=== PATIENT | female | born 1990 | race Caucasian/White ===

== ENCOUNTER 2017-09-20 07:15 | Emergency (ER) | payer MEDICAID ==
--- NOTE | 2017-09-20 08:08 | PD ---
HPI Chief Complaint Contractions Date Seen: Sep 20, 2017 Time Seen: 08:04 Travel History International Travel<30 Days: No Contact w/Intl Traveler<30Days: No Known Affected Area: No History of Present Illness HPI 26-year-old who is at 34 weeks 1 day comes in to the hospital complaining of contractions. Patient is here with her mother and they're both driving from [place] and her here in [place] temporarily just visiting. Patient experienced contractions off and on for proximally 4 hours but states that they have decreased now and are almost absent. She states that she had care in [place] with the visit approximately one week ago when ultrasound showed a baby he was 3 pounds. Patient states she has uncomplicated antepartum course and has had 2 prior spontaneous vaginal deliveries 1 at 36 the other one at 37 weeks. Patient is a smoker but she denies drug use vaginal bleeding vaginal discharge rupture membranes. Patient's had normal movement Weeks Gestation: 34 Para: 2 : 3 History Past Medical History Medical History: Denies Significant Hx Obstetric History Obstetric History 36 weeks, 6 lbs. 5 oz., spontaneous vaginal delivery 37 weeks 7 lbs. 2 oz., spontaneous vaginal delivery Past Surgical History Surgical History: No Previous Surgery Family History Family History: Negative Social History Alcohol Use: No Tobacco Use: Yes Substance Abuse: No Allergies-Medications (Allergen,Severity, Reaction): Coded Allergies: No Known Allergies (Unverified , 09/20/17) Review of Systems Except as stated in HPI: all other systems reviewed are Neg Physical Exam Narrative GENERAL: Well-nourished, well-developed patient. Somewhat agitated and when I had entered the room had removed all monitors as the noise offended her. SKIN: Warm and dry. HEAD: Normocephalic and atraumatic. EYES: No scleral icterus. No injection or drainage. ENT: No nasal drainage noted. Mucous membranes pink. Airway patent. NECK: Supple, trachea midline. No JVD. CARDIOVASCULAR: Regular rate and rhythm without murmurs, gallops, or rubs. RESPIRATORY: Breath sounds equal bilaterally. No accessory muscle use. ABDOMEN/GI: Abdomen soft, non-tender, bowel sounds present, no rebound, no guarding Gravid to [-28] weeks size Fundal Height: [-] GENITOURINARY: External Genitalia: intact and normal in appearance BUS glands: [-Normal] Cervix: [-Posterior] Dilatation: [-cl] Effacement: [-50] Station: [--3] Presentation: [Vertex-] Membranes: [intact] Uterine Contractions: [Absent-] FHT's: Category: [-1] Baseline: [140-] Reactive: [-Moderate] Variability: [-Moderate] Decels: [-Absent] EXTREMITIES: No cyanosis or edema. BACK: Nontender without obvious deformity. No CVA tenderness. NEUROLOGICAL: Awake and alert. Motor and sensory grossly within normal limits. Five out of 5 muscle strength in all muscle groups. Normal speech. Data Data Vital Signs Reviewed: Yes [facility] Medical Record Reviewed: Yes Plan 26-year-old originally from [place] and has no records at this time. She is not planning on delivering here and she is here [facility] only temporarily. Examination reveals size less than dates based on fundal height and ultrasound was ordered. Patient is somewhat agitated so urinalysis was ordered with a tox screen. Patient care was transferred to Dr Hinton. She is presently in OB diagnostics for ultrasound Diagnosis Diagnosis: Primary Impression: 34 weeks gestation of Condition: Good Patient Instructions: General Instructions Departure Forms: Tests/Procedures Sharlene Leblanc MD Sep 20, 2017 08:08
[2017-09-20 08:48] LABS: BLOOD, URINE NEG (NEG); GLUCOSE,URINE NEG (NEG); KETONE, URINE NEG (NEG); NITRITE,URINE NEG (NEG); PH, URINE 6.5 (5.0-8.5); URINE COLOR YELLOW (YELLW/STRAW)
[2017-09-20 08:55] LABS: BACTERIA, URINE FEW /hpf; COMMENT (UR) CULT NOT INDICATED; CULTURE IF INDICATED CULT NOT INDICATED; MUCUS URINE MANY /lpf (OCC); RBC, URINE 0-3 /hpf (0-3); SQUAMOUS EPITHELIAL CELL URINE > 8 /hpf (0-5)
[2017-09-30 10:53] LABS: BATH SALTS (MDPV) UR NEG (NEG); ECSTASY (MDMA) UR NEG (NEG); HEROIN (6-ACETYLMORPHINE) UR NEG (NEG); K2 SPICE UR NEG (NEG); OBGABAPENTIN UR NEG (NEG); OBHYDROMORPHONE U NEG (NEG); OBMETHADONE UR NEG (NEG); PHENCYCLIDINE URINE NEG (NEG)
== END 2017-09-20 11:57 | disposition home or self-care (01) ==
LOC: HOBED 07:15
DX: O47.03 False labor before 37 completed weeks of gestation, third trimester (principal); O99.333 Smoking (tobacco) complicating pregnancy, third trimester; Z3A.34 34 weeks gestation of pregnancy
CPT/HCPCS: 76816; 76819; 80307; 81001; 99284; G0481